=== PATIENT | female | born 1980 | race Caucasian/White ===

== ENCOUNTER 2018-10-07 12:44 | Emergency (ER) | payer BC ==
[~2018-10-07] VITALS: Ht 157.5 cm; Wt 112.9 kg
[2018-10-07 12:45] VITALS: BP_SYST 137
--- NOTE | 2018-10-07 12:45 | NUR ---
Patient triaged and placed in waiting room. VSS and patient appears in no acute distress at this time. Accompanied by BOSS, awaiting available bed, and MD notified of need for MSE.
[2018-10-07] MEDS ORDERED: KETOROLAC TROMETHAMINE 30 MG VIAL IM ONE ×2 (13:00→15:45)
[2018-10-07] MEDS ORDERED: MORPHINE 4 MG/ML INJ. SYRINGE IM ONE ×2 (13:00→15:45)
[2018-10-07] MEDS ORDERED: ONDANSETRON 4 MG ODT TAB PO ONE ×2 (13:00→15:45)
--- NOTE | 2018-10-07 15:21 | NUR ---
BROUGHT BACK TO HALLWAY BED, PLACED IN BED AND REPORT GIVEN TO SHAN
--- NOTE | 2018-10-07 15:30 | NUR ---
Patient arrived via POV, AAOx4, and ambulatory with limping gait. Patient brought in by work friend. 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 Patient made a quick turn, and felt pain to lower back. Patient states pain radiates down posterior legs. Patient states pain is increased with sitting and laying. Patient offered ice pack, declined.
--- NOTE | 2018-10-07 15:35 | NUR ---
ER at bedside examining patient.
[2018-10-07] MEDS ORDERED: MORPHINE 2 MG/ML INJ. SYRINGE IM ONE (15:45)
[2018-10-07 16:25] VITALS: BP_SYST 132
--- NOTE | 2018-10-07 16:25 | NUR ---
Patient given written and verbal discharge instructions and verbalizes understanding. ER MD discussed with patient the results and treatment provided. Patient in stable condition. ID arm band removed. Rx of Cipro, Motrin, Flexeril, and Tramdol given. Patient educated on pain management and to follow up with PMD. Pain Scale 6/10, pain decreasing after pain med administration. Opportunity for questions provided and answered. Medication side effect fact sheet provided.
== END 2018-10-07 16:25 | disposition home or self-care (01) ==
LOC: SED 12:44
DX: N39.0 Urinary tract infection, site not specified (principal); M54.5 Low back pain
CPT/HCPCS: 72100; 81002; 81025; 96372; 99283; J1885; J2270; Q0162

== ENCOUNTER 2022-09-03 19:45 | Emergency (ER) | payer BC, OTHER ==
[2022-09-03 19:52] VITALS: BP_SYST 144; PULSE 80; RESP 17; TEMP 98.9; O2SAT 98
--- NOTE | 2022-09-03 19:58 | NUR ---
ER in triage examining patient.
--- NOTE | 2022-09-03 19:59 | NUR ---
Patient triaged and placed in waiting room. VS checked and patient appears in no acute distress at this time. Accompanied by self, awaiting available bed.
[2022-09-03 21:25] LABS: BASOPHILS # (AUTO) 0.1 K/uL (0.0-0.2); BASOPHILS % (AUTO) 0.5 % (0.0-2.0); EOSINOPHILS # (AUTO) 0.2 K/uL (0.0-0.4); EOSINOPHILS % (AUTO) 1.9 % (0.0-4.0); HEMATOCRIT 40.6 % (36-48); HEMOGLOBIN 13.2 g/dL (12.0-16.0); LYMPHOCYTES # (AUTO) 4.2 K/uL (1.0-5.5); LYMPHOCYTES % (AUTO) 33.7 % (20.5-51.5); MEAN CORPUSCULAR HEMOGLOBIN 27 pg (27-31); MEAN CORPUSCULAR HGB CONC 33 % (32-36); MEAN CORPUSCULAR VOLUME 83 fL (79.0-98.0); MONOCYTES % (AUTO) 7.9 % (1.7-9.3); PLATELET COUNT (AUTO) 291 K/uL (130-430); RED BLOOD CELL COUNT(AUTO) 4.87 MIL/uL (4.2-6.2); RED CELL DISTRIBUTION WIDTH 14.1 % (9.0-15.0); WHITE BLOOD COUNT (AUTO) 12.5 K/uL (4.8-10.8)
[2022-09-03 21:39] LABS: CALCIUM 8.2 mg/dL (8.4-11.0); CREATININE 0.84 mg/dL (0.55-1.30)
[2022-09-03 21:43] LABS: ALBUMIN 3.2 g/dL (3.4-4.8); TOTAL BILIRUBIN 0.3 mg/dL (0.0-1.0)
[2022-09-03] MEDS ORDERED: ONDANSETRON 4 MG ODT TAB PO ONE (21:45)
[2022-09-03] MEDS ORDERED: KETOROLAC TROMETHAMINE 30 MG VIAL IM ONE (21:45)
[2022-09-03 22:22] LABS: BILIRUBIN,URINE NEGATIVE (NEGATIVE); BLOOD, URINE 3+ (NEGATIVE); COLOR,URINE YELLOW (YELLOW); GLUCOSE,URINE NEGATIVE (NEGATIVE); KETONES,URINE NEGATIVE (NEGATIVE); LEUKOCYTE ESTERASE ,URINE 1+ (NEGATIVE); NITRITE, URINE NEGATIVE (NEGATIVE); PH,URINE 5.5 (5.0-8.0); PROTEIN URINE NEGATIVE (NEGATIVE); UROBILINOGEN,URINE 0.2 (0.2-1.0)
[2022-09-03 22:30] LABS: CLARITY/URINE HAZY (CLEAR)
[2022-09-03] MEDS ORDERED: CEPH-548 PO (22:41)
[2022-09-03 22:42] LABS: BACTERIA,URINE FEW /HPF (None Seen); MUCUS,URINE 1+ /LPF (None Seen)
[2022-09-03] MEDS ORDERED: cefTRIAXone 1 GM in LIDOCAINE 1%, 20 ML MDV 2.1 ML IM ONE (22:45)
--- NOTE | 2022-09-03 23:13 | NUR ---
Patient given written and verbal discharge instructions and verbalizes understanding. ER MD discussed with patient the results and treatment provided. Patient in stable condition. ID arm band removed. Rx of CEPHALEXIN given. Patient educated on pain management and to follow up with PMD. Pain Scale 0/10. Opportunity for questions provided and answered. Medication side effect fact sheet provided.
== END 2022-09-03 22:53 | disposition home or self-care (01) ==
LOC: SED 19:45
DX: N12 Tubulo-interstitial nephritis, not specified as acute or chronic (principal); N39.0 Urinary tract infection, site not specified; R91.1 Solitary pulmonary nodule; R10.11 Right upper quadrant pain; R14.1 Gas pain; R30.9 Painful micturition, unspecified; Z88.2 Allergy status to sulfonamides; Z87.442 Personal history of urinary calculi; Z79.899 Other long term (current) drug therapy
CPT/HCPCS: 99285; 74176; 76705; 80053; 81000; 83690; 85025; 87040; 87086; 36415; 76376; 81025; 96372; Q0162; J0696; J1885; J2001

== ENCOUNTER 2022-09-28 00:33 | Emergency (ER) | payer BC ==
[~2022-09-28] VITALS: Ht 157.5 cm; Wt 108.9 kg
[~2022-09-28 00:33] MED LIST: CEPH-548 PO
[2022-09-28 00:35] VITALS: BP_SYST 133; PULSE 86; RESP 16; TEMP 97.9; O2SAT 97
[2022-09-28] MEDS ORDERED: KETOROLAC TROMETHAMINE 60 MG/2 ML VIAL IM ONE (01:00)
[2022-09-28] MEDS ORDERED: VIS25 PO (01:07)
[2022-09-28] MEDS ORDERED: IBUP-1971 PO (01:07)
[2022-09-28 01:23] VITALS: BP_SYST 133; PULSE 86; RESP 16; TEMP 97.9; O2SAT 97
== END 2022-09-28 01:23 | disposition home or self-care (01) ==
LOC: SED 00:33
DX: M79.18 Myalgia, other site (principal); F41.9 Anxiety disorder, unspecified; R20.2 Paresthesia of skin; Z88.2 Allergy status to sulfonamides; Z79.899 Other long term (current) drug therapy
CPT/HCPCS: 99283; 96372; J1885

== ENCOUNTER 2023-11-27 20:18 | Emergency (ER) | payer BC ==
[~2023-11-27] VITALS: Ht 157.5 cm; Wt 110.7 kg
[~2023-11-27 20:18] MED LIST changes: +IBUP-1971 PO; +VIS25 PO
[2023-11-27 20:23] VITALS: BP_SYST 121; PULSE 80; RESP 16; TEMP 98; O2SAT 98
[2023-11-27 22:25] LABS: BASOPHILS # (AUTO) 0.1 K/uL (0.0-0.2); EOSINOPHILS # (AUTO) 0.2 K/uL (0.0-0.4); EOSINOPHILS % (AUTO) 1.6 % (0.0-4.0); HEMATOCRIT 41.1 % (36-48); HEMOGLOBIN 13.8 g/dL (12.0-16.0); LYMPHOCYTES # (AUTO) 3.9 K/uL (1.0-5.5); LYMPHOCYTES % (AUTO) 31.2 % (20.5-51.5); MEAN CORPUSCULAR HEMOGLOBIN 27 pg (27-31); MEAN CORPUSCULAR HGB CONC 34 % (32-36); MEAN CORPUSCULAR VOLUME 81 fL (79.0-98.0); MONOCYTES # (AUTO) 0.9 K/uL (0.0-1.0); MONOCYTES % (AUTO) 7.5 % (1.7-9.3); NEUTROPHILS # (AUTO) 7.3 K/uL (1.8-7.7); NEUTROPHILS % (AUTO) 58.7 % (40.0-70.0); PLATELET COUNT (AUTO) 377 K/uL (130-430); RED BLOOD CELL COUNT(AUTO) 5.07 MIL/uL (4.2-6.2); RED CELL DISTRIBUTION WIDTH 14.1 % (9.0-15.0); WHITE BLOOD COUNT (AUTO) 12.4 K/uL (4.8-10.8)
[2023-11-27 22:56] LABS: ALANINE AMINOTRANSFERASE 24 U/L (12-78); ALBUMIN 3.4 g/dL (3.4-4.8); ANION GAP 6 (5-15); ASPARTATE AMINOTRANSFERASE 21 U/L (10-37); BILIRUBIN,DIRECT 0.1 mg/dL (0.0-0.3); CALCIUM 8.8 mg/dL (8.4-11.0); CARBON DIOXIDE 28 mmol/L (23-29); CHLORIDE 105 mmol/L (98-107); CREATINE KINASE, TOTAL 52 U/L (26-192); CREATININE 0.89 mg/dL (0.55-1.30); GFR AFRICAN AMERICAN 89 mL/min (>90); GLUCOSE 97 mg/dL (74-106); POTASSIUM 4.2 mmol/L (3.5-5.1); SODIUM SERUM 139 mmol/L (136-145); TOTAL BILIRUBIN 0.2 mg/dL (0.0-1.0); TOTAL PROTEIN, SERUM 7.8 g/dL (6.4-8.3); UREA NITROGEN, BLOOD 9 mg/dL (8-21)
[2023-11-27 23:03] LABS: GFR NON AFRICAN-AMERICAN 74 mL/min (>90)
[2023-11-27] MEDS ORDERED: iohexoL 350 mgI/mL, 100 ML INFUS..BTL IV ONE (23:05)
[2023-11-27] MEDS ORDERED: ONDANSETRON HCL 4 MG/2 ML VIAL ONE (23:14)
[2023-11-28] MEDS: ONDANSETRON HCL 4 MG/2 ML VIAL IVP ONE (00:32)
[2023-11-28] MEDS ORDERED: NAPR-1172 PO (05:13)
[2023-11-28 05:22] VITALS: BP_SYST 121; PULSE 82; RESP 20; TEMP 98.6; O2SAT 99
== END 2023-11-28 05:59 | disposition home or self-care (01) ==
LOC: SED 20:18
DX: R07.89 Other chest pain (principal); R06.02 Shortness of breath; J45.909 Unspecified asthma, uncomplicated; Z87.442 Personal history of urinary calculi; Z85.3 Personal history of malignant neoplasm of breast; Z88.2 Allergy status to sulfonamides; Z88.1 Allergy status to other antibiotic agents; Z79.899 Other long term (current) drug therapy; Z79.2 Long term (current) use of antibiotics
CPT/HCPCS: 99285; 96374; 71275; 71045; 80076; 80048; 82550; 85025; 85379; 87040; 84484; 36415; 81025; 83605; Q9967; J2405